=== PATIENT | female | born 1990 | race Caucasian/White ===

== ENCOUNTER 2017-10-15 12:05 | Emergency (ER) | payer OTHER ==
[~2017-10-15] VITALS: Ht 162.6 cm; Wt 90.7 kg
[2017-10-15] MEDS ORDERED: CELEXA20 MG PO (12:28)
[2017-10-15 13:09] LABS: ABSOLUTE BASOPHILS 0.1 thou/uL (0.0-0.2); ABSOLUTE EOSINOPHILS 0.1 thou/uL (0.0-0.7); ABSOLUTE LYMPHOCYTES 1.7 thou/uL (0.8-5.3); ABSOLUTE MONOCYTES 0.5 thou/uL (0.0-1.2); ABSOLUTE NEUTROPHILS 6.7 thou/uL (1.6-8.1); BASOPHILS 0.7 %; EOSINOPHILS 0.7 %; HEMATOCRIT 44.7 % (37.0-47.0); HEMOGLOBIN 15.2 gm/dL (12.0-15.0); LYMPHOCYTES 19.3 %; MCHC 33.9 g/dL (28.0-37.0); MCV 91.4 fL (80.0-100.0); MONOCYTES 5.2 %; MPV 8.3 fl. (7.2-11.1); NUCLEATED RBCS 0 /100WBC; PLATELET COUNT* 220 thou/uL (150-400); POLYS 74.1 %; RBC 4.89 mil/uL (4.20-5.00); RDW-CV 13.3 % (10.5-14.5)
[2017-10-15 13:11] LABS: URINE BILIRUBIN NEGATIVE (Negative); URINE BLOOD TRACE (Negative); URINE CLARITY CLEAR; URINE COLOR YELLOW; URINE GLUCOSE-RANDOM NEGATIVE (Negative); URINE KETONES NEGATIVE (Negative); URINE LEUKOCYTES-REFLEX NEGATIVE (Negative); URINE NITRITE-REFLEX NEGATIVE (Negative); URINE PROTEIN NEGATIVE (Negative); URINE UROBILINOGEN 0.2 E.U./dl (0.2-1.0)
[2017-10-15 13:15] LABS: CALCIUM 9.3 mg/dL (8.5-10.1); CREATININE 0.9 mg/dL (0.6-1.3); POTASSIUM 3.9 mmol/L (3.5-5.1)
[2017-10-15 13:20] LABS: TOTAL BILIRUBIN 0.7 mg/dL (<0.1-1.0); TOTAL PROTEIN 8.1 g/dL (6.4-8.2)
[2017-10-15] MEDS ORDERED: ZOFRAN4 MG PO (14:57)
[2017-10-15] MEDS ORDERED: NAPROSYN500 MG PO (14:57)
[2017-10-15 15:11] VITALS: BP 143/90
== END 2017-10-15 15:11 | disposition home or self-care (01) ==
LOC: M.ERS 12:05
PROVIDERS: Nurse Practitioner Family
DX: R10.9 Unspecified abdominal pain (principal); B34.9 Viral infection, unspecified; Z91.048 Other nonmedicinal substance allergy status